=== PATIENT | female | born 1970 | race Caucasian/White ===

== ENCOUNTER 2018-07-02 06:52 | Day surgery (SDC) | payer OTHER ==
[~2018-07-02] VITALS: Ht 175.3 cm; Wt 170.1 kg
[~2018-07-02 06:52] MED LIST: ALDACTONE25 MG PO; AMLODIPINE BES2.5 MG PO; B COMPLEX1 EACH PO; GABAPENTIN600 MG PO; HYDROCHLOROTH12.5 MG PO; POTASSIUM99 M1 PO; TRAZODONE HCL150 MG PO
[2018-07-02] MEDS ORDERED: BIOTIN5000 MCG PO (07:12)
[2018-07-02] MEDS ORDERED: ALLERGY10 M1 PO (07:12)
[2018-07-02] MEDS ORDERED: MELATONIN5 M2 PO (07:13)
--- NOTE | 2018-07-02 09:05 | NUR ---
07/02/18 0905 Chrissy Elliott 0901-PATIENT ARRIVED TO PACU ON 6L MASK O2 SAT 99% PATIENT REACTIVE TO VOICE AROUSES TO VERBAL STIMULI DROWSY. DENIES PAIN OR NAUSEA. ABDOMEN ROUND AND SOFT. RR EVEN
--- NOTE | 2018-07-02 11:20 | NUR ---
returned to rm 6 r t placing on c pap machine. c/o pain abd allover. iv patent.
--- NOTE | 2018-07-02 11:40 | NUR ---
fleets was given pt held x 10 min up to bsc exspelled yellow watery fluid 100mls. denies passing flatus. returned to bed moaning c/o pain all over abd.
--- NOTE | 2018-07-02 12:21 | NUR ---
DENIES PASSING FLATUS. ENC TO GET UP AND WALK.
--- NOTE | 2018-07-02 12:37 | NUR ---
1230 AMB TO DOORWAY LOUD MOANING AND CRYING TURNED AROUND AT DOOR AND RETURNED TO BED. AGAIN DENIES PASSING ANY FLATUS.
--- NOTE | 2018-07-02 13:43 | NUR ---
HAS BEEN PASSING LARGE AMT FLATUS. FEELING MUCH BETTER. WANTS TO GO HOME.
--- NOTE | 2018-07-03 11:04 | OR ---
[facility] [address] [place] [place], [place] [address] Signed DATE OF OPERATION: 07/02/2018 SURGEON: Mckenzie Jaffe MD PREOPERATIVE DIAGNOSIS: Screening. POSTOPERATIVE DIAGNOSES: 1. A 5 mm polyp at 75 cm. 2. A 12-15 mm polyp at 55 cm (tattoo). 3. 12-15 mm polyp at 25 cm (tattoo). 4. Minimal sigmoid diverticulosis. 5. Minimal internal anal skin tags. PROCEDURE: Colonoscopy with snare polypectomy, hot biopsy, and injection of tattoo. ESTIMATED BLOOD LOSS: None. INDICATIONS: Travis is a 48-year-old female who came to see us for her initial screening colonoscopy. She has no family history of colon cancer or polyps. She has no lower GI complaints. In the office, I gave her a pamphlet on colonoscopy and we looked at that together along with the risks of a colonoscopy including, but not limited to gas, bloating, crampy abdominal pain, bleeding, perforation, requiring surgery, and missed diagnosis. We also reviewed the need for IV conscious sedation. She had expressed understanding and wish to proceed. PROCEDURE NOTE: Travis was taken into our endoscopy suite and placed in the left lateral decubitus position. She was given IV sedation with divided doses of 11 mg of Versed and 200 mcg of fentanyl. A digital rectal exam was performed and this was unremarkable. The adult colonoscope was then introduced and advanced under direct visualization of camera without difficulty into the cecum itself. Her prep was good. The scope was then slowly withdrawn. She had a polyp at 75 cm, removed with a hot biopsy forceps. The polyp at 55 and 25 cm run along stalk and so we used the snare and then we cauterized the base of each one significantly with the hot biopsy forceps. A tattoo was injected at the base of both of those polyps at 55 and 25 cm. We also noticed a few diverticula in the sigmoid colon. They were minimal in size, minimal number and scattered about. Once in Electronically Signed By: MCKENZIE JAFFE MD 07/03/18 1104 PATIENT NAME: TRAVIS STEWART OPERATIVE REPORT DATE OF : 66 REPORT #: [id number] PHYSICIAN: MCKENZIE JAFFE MD PCP: KIKO LOPEZ REPORT IS CONFIDENTIAL AND NOT TO BE RELEASED WITHOUT AUTHORIZATION [facility] [address] [place], [place] [address] Signed the rectum, the scope had been retroflexed and there were just three tiny skin tags associated with the anal canal. After this, the gas was suctioned out and the colonoscope removed. Travis tolerated the procedure quite well. RECOMMENDATIONS: I will see Travis back in my office in 7 to 14 days to review her results. Mckenzie Jaffe MD ALB/ADAML /[id number] cc: CECELIA Kelly MD James D Ward, DO Copies: KIKO LOPEZ ANDREW L MD WARD, JAMES D DO ~ Electronically Signed By: MCKENZIE JAFFE MD 07/03/18 1104 PATIENT NAME: TRAVIS STEWART OPERATIVE REPORT DATE OF : 66 REPORT #: [id number] PHYSICIAN: MCKENZIE JAFFE MD PCP: KIKO LOPEZ REPORT IS CONFIDENTIAL AND NOT TO BE RELEASED WITHOUT AUTHORIZATION
== END 2018-07-02 13:50 | disposition home or self-care (01) ==
LOC: DS 06:52 → OPS 06:52 → DS 08:15 → OPS 08:15
PROVIDERS: Colon & Rectal Surgery
PROC: 0DBE8ZX Excision of Large Intestine, Via Natural or Artificial Opening Endoscopic, Diagnostic (ICD-10-PCS; 2018-07-02)
PROC: 0DBE8ZX Excision of Large Intestine, Via Natural or Artificial Opening Endoscopic, Diagnostic (ICD-10-PCS; principal; 2018-07-02 08:15)
DX: Z12.11 Encounter for screening for malignant neoplasm of colon (principal); D01.0 Carcinoma in situ of colon; D12.6 Benign neoplasm of colon, unspecified; K57.30 Diverticulosis of large intestine without perforation or abscess without bleeding; K64.8 Other hemorrhoids; G47.00 Insomnia, unspecified; I10 Essential (primary) hypertension; E66.9 Obesity, unspecified; G25.81 Restless legs syndrome; Z87.891 Personal history of nicotine dependence; Z79.899 Other long term (current) drug therapy; Z68.43 Body mass index [BMI] 50.0-59.9, adult
CPT/HCPCS: 74019; 88305; 99153; G0500; J1170; J2250; J2405; J3010; J7120

== ENCOUNTER 2020-09-29 07:45 | Day surgery (SDC) | payer OTHER ==
[~2020-09-29] VITALS: Ht 175.3 cm; Wt 164.5 kg
[~2020-09-29 07:45] MED LIST changes: +ALLERGY10 M1 PO; +AMLODIPINE BESY10 MG PO; +ASPIR-LOW81 MG PO; +BIOTIN5000 MCG PO; +CELECOXIB200 MG PO; +GLUCOSAMINE HC500 MG PO; +HYDROCODON-ACE1 EA11 PO; +LOSARTAN POTAS100 MG PO; +MAGNESIUM250 M1 PO; +MELATONIN5 M2 PO; +MOTRIN IB200 MG PO; +NORCO 5-325 TA1 EACH PO; +SENNA LAX8.6 MG PO; +VITAMIN C1000 MG PO; +ZINC50 MG PO
[2020-09-29] MEDS ORDERED: TURMERIC500 M2 PO (08:14)
--- NOTE | 2020-09-29 09:52 | NUR ---
09/29/20 0952 Mary Kay Xiao 0929 PT ARRIVED TO PACU PT DROWSY AND REACTIVE TO VERBAL STIMULI. VSS. PT DENIES PAIN AND NAUSEA. 0950 PT RESTING WITH EYES CLOSED AND O2 REMOVED. PT MOVED HERSELF UP IN BED AND HOB INCREASED.
--- NOTE | 2020-10-03 07:49 | EKG ---
[facility] [address] [facility] [place] [address] Signed Normal sinus rhythm Normal ECG When compared with ECG of 10-MAR-2019 11:30, premature supraventricular complexes are no longer present T wave amplitude has increased in Lateral leads Confirmed by GABRIELE GUTIERREZ MD ([id number]) on 09/27/2020 10:38:16 PM Electronically Signed By: GABRIELE GUTIERREZ MD 09/27/20 2238 Electronically Signed By: GABRIELE GUTIERREZ MD 10/10/20 1508 PATIENT NAME: TRAVIS STEWART Electrocardiogram DATE OF : 66 PHYSICIAN: GABRIELE GUTIERREZ MD REPORT #: [id number] REPORT IS CONFIDENTIAL AND NOT TO BE RELEASED WITHOUT AUTHORIZATION
--- NOTE | 2020-10-03 08:09 | OR ---
[facility] [address] [place], [place] [address] Signed DATE OF OPERATION: 09/29/2020 SURGEON: Mckenzie Jaffe MD PREOPERATIVE DIAGNOSIS: A 12 to 15 mm skin lesion left upper back/bra line. POSTOPERATIVE DIAGNOSIS: A 12 to 15 mm skin lesion left upper back/bra line. PROCEDURE: Excision of left upper back skin lesion (2 x 8 cm). ESTIMATED BLOOD LOSS: None. INDICATIONS: Travis is a 50-year-old obese female, asked to see me for a skin lesion on her left upper back, 12-15 mm in diameter. It has been underneath her bra line. It has been there probably a year. It continues to increase in size. It has been very painful underneath her bra line. Based on visual inspection, there was some concern it could be a basal cell carcinoma. She had been asked to have it removed by her primary care provider. In the office, I explained to Travis this was a bit much to do in the office under straight local anesthetic, and indeed that proved to be the case. We decided we would do this under monitored anesthesia care in the right lateral decubitus position with the help of local anesthetic. I explained to her the nature of the vertical incision required to move this lesion full thickness. She understands there is risk including, but not limited to bleeding, infection, scarring, change in contour of the skin as well as possible need for additional procedures based on pathology results. She had expressed understanding, wished to proceed. DESCRIPTION OF PROCEDURE: I had met with Travis in our preop area. With our nurse in the room, we marked the lesion appropriately. She has had a previous much smaller lesion moved over the left posterior shoulder. Her scar is quite wide. I suspect some of that is based on her body habitus, that the skin pulls apart as it scars down. After this, we took Travis into our operating room and placed in the right lateral decubitus position with appropriate padding and monitoring. She was placed under monitored anesthesia care by our nurse bearing machine operator. She was given preoperative antibiotics. SCDs were utilized. She was also given subcutaneous heparin. She was prepped and draped in the usual Electronically Signed By: MCKENZIE JAFFE MD 09/29/20 1440 Electronically Signed By: MCKENZIE JAFFE MD 10/03/20 0852 PATIENT NAME: TRAVIS STEWART OPERATIVE REPORT DATE OF : 66 REPORT #: [id number] PHYSICIAN: MCKENZIE JAFFE MD PCP: CAROLINE PAZ MD REPORT IS CONFIDENTIAL AND NOT TO BE RELEASED WITHOUT AUTHORIZATION [facility] [address] [place], [place] [address] Signed sterile fashion. We measured out an incision 2 cm wide x 8 cm in length. Local anesthetic was copiously injected in the skin and underneath the skin. A 15 blade knife was used to develop the elliptical incision, full thickness. We took some of the adipose tissue underneath with the help of the cautery. The lesion was then appropriately marked with suture and passed off the field. We could not bring the dermis back together with our usual 3-0 Monocryl suture. Consequently, we opted for two-0 nylon vertical mattress sutures to bring that skin back together. We then used 3-0 interrupted simple nylon sutures in between to reapproximate the skin edges. Dry gauze and tape were then applied. Travis was then rotated into the supine position and transferred over to her hospital bed and taken into recovery room in stable condition. Travis tolerated the procedure quite well. Mckenzie Jaffe MD ALB/MODL /[id number] cc: MD Mckenzie Brennan MD Copies: MCKENZIE JAFFE MD ~ Electronically Signed By: MCKENZIE JAFFE MD 09/29/20 1440 Electronically Signed By: MCKENZIE JAFFE MD 10/03/20 0852 PATIENT NAME: TRAVIS STEWART OPERATIVE REPORT DATE OF : 66 REPORT #: [id number] PHYSICIAN: MCKENZIE JAFFE MD PCP: CAROLINE PAZ MD REPORT IS CONFIDENTIAL AND NOT TO BE RELEASED WITHOUT AUTHORIZATION
--- NOTE | 2020-10-06 15:41 | PATH ---
[facility] [address] [facility] [place] [address] Signed SPECIMEN(S): A MID BACK SPECIMEN SOURCE: A. MID BACK CLINICAL HISTORY: Skin lesion of back. Check for margins. Excision, skin lesion on left back. FINAL PATHOLOGIC DIAGNOSIS: Skin, mid back, excision: - Dermatofibroma; not present at surgical margins. COMMENT: Sections of demonstrate a dermal based cellular neoplasm comprised of ovoid to spindled cells with prominent nucleoli, vesicular chromatin, and eosinophilic cytoplasm growing in whorled and vesicular architecture. Scattered lesional giant cells are present. Collagen trapping is concentrated towards the periphery of the lesion and the lesion extends into the subcutaneous fat. Cellular atypia, increased mitoses, and necrosis is not identified. The overlying epidermis is acanthotic and focal metaplastic ossification is present in the dermis adjacent to the lesion. Immunohistochemical stains (with appropriately staining controls) were performed for further characterization and the lesional cells show the following: Factor XIIIa: Positive CD34: Negative. The overall combined immunophenotypic profile is compatible with dermatofibroma. The lesion is not present at the surgical margins. As part of [facility]' Quality Improvement Program, this case was reviewed by another member of our pathology staff. NAL:cml:C NR MICROSCOPIC EXAMINATION: Histologic sections of all submitted blocks are examined by light microscopy. These findings, together with the gross examination, support the pathologic diagnosis. GROSS DESCRIPTION: The specimen, labeled "CT, A," and designated on the requisition "skin lesion mid back, skin lesion of back," is received in formalin and consists of a 8.2 x PATIENT NAME: TRAVIS STEWART PATHOLOGY DATE OF : 66 REPORT #: [id number] PHYSICIAN: LEANDRO PATHOLOGY PCP: CAROLINE PAZ MD REPORT IS CONFIDENTIAL AND NOT TO BE RELEASED WITHOUT AUTHORIZATION [facility] [address] [place] [address] Signed 2.0 cm, patrick skin ellipse that is excised to a depth of 2.2 cm. The specimen is oriented with a long suture indicating lateral, a short stitch indicating superior and a double stitch indicating inferior. The superior stitch is arbitrarily designated 12 o'clock the purpose of this dictation which designates the inferior stitch at 6 o'clock and the lateral stitch at approximately 8 to 9 o'clock. The specimen is inked as follows: 12 o'clock-3 o'clock = red; 3 o'clock-6 o'clock = orange; 6 o'clock-9 o'clock-12 o'clock = blue; deep = black. On the skin surface is an ill-defined, bumpy, firm, patrick-white, 1.6 x 1.4 x 0.2 cm lesion that is 0.4 cm from the nearest skin margin, 9 o'clock. The specimen is sectioned from 12 o'clock to 6 o'clock. The lesion grossly appears to invade into the subcutaneous tissue 1.0 cm and grossly appears to abut the peripheral orange, red, and blue resection margins. The lesion is 0.8 cm from the deep margin. The remaining subcutaneous tissue is yellow, lobulated and grossly unremarkable. An additional discrete mass/lesion is not grossly identified. The specimen is submitted entirely as follows: (A1) tips (A2-A14) remaining specimen submitted sequentially from 12 o'clock to 6 o'clock AI (under the direct supervision of a pathologist) The Gross Description was prepared using a voice recognition system. The report was reviewed for accuracy; however, sound-alike word errors, addition and/or deletions may occur. If there is any question about this report, please contact Client Services. ADDITIONAL NOTES: Immunohistochemical and/or in situ hybridization studies were performed on this case with the appropriate positive controls that react as expected. This test was developed and its performance characteristics determined by [facility]. It has not been cleared or approved by the U.S. Food and Drug Administration. The FDA has determined that such clearance or approval is not necessary. This test is used for clinical purposes. It should not be regarded as investigational or for research. [facility] is certified under the Clinical Laboratory Improvement Amendments of 1988 (CLIA) as qualified to perform high complexity clinical laboratory testing. PATIENT NAME: TRAVIS STEWART PATHOLOGY DATE OF : 66 REPORT #: [id number] PHYSICIAN: LEANDRO VILLANUEVA PCP: CAROLINE PAZ MD REPORT IS CONFIDENTIAL AND NOT TO BE RELEASED WITHOUT AUTHORIZATION [address] [address] Signed PERFORMING LABORATORY: The technical component was performed by [facility], [address] [place] [address] (Landing Worker: Pamella Mukherjee MD; CLIA# [id number]). Professional interpretation was performed by [facility], [facility], [address] [address] (IA# [id number]). Diagnostician: Hoa Wong MD Pathologist Electronically Signed 10/06/2020 Copies: ~ PATIENT NAME: TRAVIS STEWART PATHOLOGY DATE OF : 66 REPORT #: [id number] PHYSICIAN: LEANDRO PATHOLOGY PCP: CAROLINE PAZ MD REPORT IS CONFIDENTIAL AND NOT TO BE RELEASED WITHOUT AUTHORIZATION
== END 2020-09-29 10:27 | disposition home or self-care (01) ==
LOC: DS 07:45
PROVIDERS: ATTEND Colon & Rectal Surgery
PROC: 0HB6XZZ Excision of Back Skin, External Approach (ICD-10-PCS; principal; 2020-09-29 08:15)
DX: L98.8 Other specified disorders of the skin and subcutaneous tissue (principal); I10 Essential (primary) hypertension; E66.01 Morbid (severe) obesity due to excess calories; G47.30 Sleep apnea, unspecified; M19.90 Unspecified osteoarthritis, unspecified site; Z85.038 Personal history of other malignant neoplasm of large intestine; Z79.899 Other long term (current) drug therapy; Z88.8 Allergy status to other drugs, medicaments and biological substances; Z68.43 Body mass index [BMI] 50.0-59.9, adult
CPT/HCPCS: 00300; 88305; 88341; 88342; J0690; J1644; J1885; J2001; J2250; J2405; J2704; J7121

== ENCOUNTER 2020-10-31 06:32 | Day surgery (SDC) | payer OTHER ==
[~2020-10-31] VITALS: Ht 175.3 cm; Wt 165.0 kg
[~2020-10-31 06:32] MED LIST changes: +TURMERIC500 M2 PO; +VALERIAN ROOT100 MG
--- NOTE | 2020-10-31 08:14 | NUR ---
10/31/20 0814 Ninoska,Mary Kay 0807 PT WAKES EASILY AND VSS. PT ENCOURAGED TO PASS GAS AND DEEP BREATHE OFF AND ON.
--- NOTE | 2020-10-31 10:10 | OR ---
[facility] [address] [place], [place] [address] Signed DATE OF OPERATION: 10/31/2020 SURGEON: Mckenzie Jaffe MD PREOPERATIVE DIAGNOSES: 1. Personal history of colonic polyps in 2018. 2. Tattoos at 25 and 55 cm. POSTOPERATIVE DIAGNOSES: 1. A 10 mm lipoma, distal right colon. 2. An 8 mm sessile polyp, distal right colon/hepatic flexure. 3. A 5 mm polyp at 70 cm. 4. Minimal left and sigmoid colon diverticulosis. 5. Tattoos at 55 and 25 cm. 6. Several small internal anal skin tags. PROCEDURES: 1. Colonoscopy. 2. Snare polypectomy. 3. Hot biopsy. ESTIMATED BLOOD LOSS: None. INDICATIONS: Travis is a 50-year-old female, who came to us in 2018 for a colonoscopy. She had a polyp at 25 cm removed with carcinoma in situ versus dysplasia. She also had a polyp removed at 55 cm, both areas received tattoos. An additional polyp was taken out around 75 cm and was much smaller. She saw her colorectal surgeon for a second opinion and it turned out the repeat sigmoidoscopy was unremarkable. The biopsy sites were healing fine. Review of the pathologic slides did not reveal any invasive cancer. She was asked to follow up then in a year for colonoscopy. She has no lower GI complaints. She gives no family history of colon cancer or polyps. In the office, I gave Travis a pamphlet on colonoscopy. We looked at that together along with the risks including, but not limited to gas bloating, crampy abdominal pain, bleeding, perforation requiring surgery, and missed diagnosis. She also understands the need for IV conscious sedation. She did well with Versed and fentanyl previously. She had expressed understanding and wished to proceed. PROCEDURE NOTE: Electronically Signed By: MCKENZIE JAFFE MD 10/31/20 1010 PATIENT NAME: TRAVIS STEWART OPERATIVE REPORT DATE OF : 66 REPORT #: [id number] PHYSICIAN: MCKENZIE JAFFE MD PCP: CAROLINE PAZ MD REPORT IS CONFIDENTIAL AND NOT TO BE RELEASED WITHOUT AUTHORIZATION [facility] [address] [place], [place] [address] Signed Travis was taken into our endoscopy suite and placed in the left lateral decubitus position. She was given a total of 9 mg of Versed and 125 mcg of fentanyl to cover the case. A digital rectal exam was performed and this was unremarkable. The adult colonoscope was inserted and advanced under direct visualization of camera without difficulty. We took a little bit of pressure in the right lower quadrant in order to get into the cecum itself. Her prep was slightly below average. We were able to irrigate and suction out most of those areas. We could easily see her ileocecal valve. We had taken pictures throughout for photodocumentation. Upon withdrawal of the scope, we saw the small lipoma in the distal right colon, and then just beyond that as we headed into the hepatic flexure was an 8 mm sessile polyp removed with help of the snare and the hot biopsy forceps. In addition, polyp was taken out at 70 cm with hot biopsy forceps. Again, she has minimal left and sigmoid colon diverticulosis. They were [id number] in size, few in number, and scattered about. We saw her tattoos back at 55 and 25 cm. We had examined those areas very carefully. No evidence of any recurrent growth or polyps. The rectum itself was unremarkable. Upon retroflexion of scope, she has several small internal anal skin tags. After this, the gas was suctioned out. The colonoscope removed. Travis tolerated the procedure quite well. RECOMMENDATIONS: I will see Travis back in my office in 7 to 14 days to review her results. She might consider additional bowel prep in the future. She could consider repeat colonoscopy in earliest three years, but no later than five. Mckenzie Jaffe MD ALB/MODL /[id number] cc: MD Mckenzie Brennan MD Copies: MCKENZIE JAFFE MD Electronically Signed By: MCKENZIE JAFFE MD 10/31/20 1010 PATIENT NAME: TRAVIS STEWART OPERATIVE REPORT DATE OF : 66 REPORT #: [id number] PHYSICIAN: MCKENZIE JAFFE MD PCP: CAROLINE PAZ MD REPORT IS CONFIDENTIAL AND NOT TO BE RELEASED WITHOUT AUTHORIZATION [facility] [address] [facility] [place], [place] [address] Signed ~ Electronically Signed By: MCKENZIE JAFFE MD 10/31/20 1010 PATIENT NAME: TRAVIS STEWART OPERATIVE REPORT DATE OF : 66 REPORT #: [id number] PHYSICIAN: MCKENZIE JAFFE MD PCP: CAROLINE PAZ MD REPORT IS CONFIDENTIAL AND NOT TO BE RELEASED WITHOUT AUTHORIZATION
--- NOTE | 2020-10-31 12:56 | NUR ---
PT ALERT, ORIENTED AND MENTIONED THAT IT IS IMPORTANT FOR HER TO STAY CURRENT WITH SCOPES BECAUSE OF FAMILY AND PERSONAL MED HISTORY. PT SEEMS TO DEAL WITH PREP APPROPRIATELY, REQUESTED PRAYER, MED. TRANS. WILL PICKUP PT FOLLOWING DC PT REQUESTED PRAYER, WILL FOLLOW
--- NOTE | 2020-11-02 11:18 | PATH ---
[facility] [address] [place], [place] [address] Signed SPECIMEN(S): C COLON POLYP AT 70 CM SPECIMEN(S): A DISTAL ASCENDING POLYP SPECIMEN(S): B DISTAL ASCENDING POLYP, BASE SPECIMEN SOURCE: A. DISTAL ASCENDING POLYP B. DISTAL ASCENDING POLYP, BASE C. COLON POLYP AT 70 CM CLINICAL HISTORY: Hx: Colon polyps. Post: Diverticulosis. MICROSCOPIC DESCRIPTION: Histologic sections of all submitted blocks are examined by light microscopy. These findings, together with the gross examination, support the pathologic diagnosis. FINAL PATHOLOGIC DIAGNOSIS: A. Colon, distal ascending, polyp, polypectomy: - Tubular adenoma; negative for high-grade dysplasia. - Lobulated submucosal fibroadipose tissue, compatible with submucosal lipoma. - Negative for malignancy. B. Colon, distal ascending, base of polyp, polypectomy: - Colonic mucosa with no histopathologic abnormality. - Negative for dysplasia or malignancy. C. Colon, polyp at 70 cm, polypectomy: - Tubular adenoma. - Negative for high-grade dysplasia or malignancy. NAL:cml:C2NR GROSS DESCRIPTION: Three specimens are received in three containers, labeled "CT." A. The specimen, labeled "CT," and designated on the requisition "distal ascending/right polypectomy," is received in formalin and consists of one pink-patrick polyp (1.1 x 0.7 x 0.7 cm) and scanty fragments of fecal debris. The resection margin of the polyp is inked blue. The polyp is trisected to reveal a yellow-patrick fatty cut surface. The specimen is submitted entirely in cassette (A1). B. The specimen, labeled "CT," and designated on the requisition "distal ascending polypectomy, base of polyp," is received in formalin and consists of one fragment of pink-patrick tissue (0.4 x 0.2 x 0.1 cm). The specimen is submitted entirely in cassette (B1). PATIENT NAME: TRAVIS STEWART PATHOLOGY DATE OF : 66 REPORT #: [id number] PHYSICIAN: LEANDRO PATHOLOGY PCP: CAROLINE PAZ MD REPORT IS CONFIDENTIAL AND NOT TO BE RELEASED WITHOUT AUTHORIZATION [facility] [address] [place], [place] [address] Signed C. The specimen, labeled "CT," and designated on the requisition "colon polypectomy at 70 cm," is received in formalin and consists of one fragment of pink-patrick tissue (0.4 x 0.2 x 0.1 cm). The specimen is submitted entirely in cassette (C1). AC (under the direct supervision of a pathologist) The Gross Description was prepared using a voice recognition system. The report was reviewed for accuracy; however, sound-alike word errors, addition and/or deletions may occur. If there is any question about this report, please contact Client Services. PERFORMING LABORATORY: The technical component was performed by [facility], [address] [place] [address] ([employer]: Pamella Mukherjee MD; CLIA# [id number]). Professional interpretation was performed by [facility], [address] [address] (CLIA# [id number]). Diagnostician: Hoa Wong MD Pathologist Electronically Signed 11/02/2020 Copies: ~ PATIENT NAME: JOBMABELTRAVIS SHITAL PATHOLOGY DATE OF : 66 REPORT #: [id number] PHYSICIAN: LEANDRO PATHOLOGY PCP: CAROLINE PAZ MD REPORT IS CONFIDENTIAL AND NOT TO BE RELEASED WITHOUT AUTHORIZATION
== END 2020-10-31 08:45 | disposition home or self-care (01) ==
LOC: OPS 06:32 → DS 06:40 → OPS 06:45 → DS 07:30 → OPS 08:45
PROVIDERS: ATTEND Colon & Rectal Surgery
PROC: 0DBE8ZX Excision of Large Intestine, Via Natural or Artificial Opening Endoscopic, Diagnostic (ICD-10-PCS; 2020-10-31)
PROC: 0DBK8ZX Excision of Ascending Colon, Via Natural or Artificial Opening Endoscopic, Diagnostic (ICD-10-PCS; principal; 2020-10-31 06:45)
DX: Z12.11 Encounter for screening for malignant neoplasm of colon (principal); D17.5 Benign lipomatous neoplasm of intra-abdominal organs; D12.2 Benign neoplasm of ascending colon; K57.30 Diverticulosis of large intestine without perforation or abscess without bleeding; K64.8 Other hemorrhoids; K64.4 Residual hemorrhoidal skin tags; I10 Essential (primary) hypertension; G47.30 Sleep apnea, unspecified; M19.90 Unspecified osteoarthritis, unspecified site; G25.81 Restless legs syndrome; E66.01 Morbid (severe) obesity due to excess calories; Z85.038 Personal history of other malignant neoplasm of large intestine; Z79.899 Other long term (current) drug therapy; Z86.010 Personal history of colon polyps; Z68.43 Body mass index [BMI] 50.0-59.9, adult; Z88.8 Allergy status to other drugs, medicaments and biological substances
CPT/HCPCS: 99153; G0500; J2250; J3010; J7121

== ENCOUNTER 2022-04-07 16:48 | Emergency (ER) | payer OTHER ==
[~2022-04-07] VITALS: Ht 175.3 cm; Wt 176.9 kg
[2022-04-07] MEDS ORDERED: HYDROXYZINE HCL25 MG PO (19:34)
[2022-04-07] MEDS ORDERED: ONDANSETRON ODT8 MG PO (19:34)
== END 2022-04-07 20:06 | disposition home or self-care (01) ==
LOC: ED 16:48
DX: R06.4 Hyperventilation (principal); R20.2 Paresthesia of skin; E66.9 Obesity, unspecified; I10 Essential (primary) hypertension; Z87.891 Personal history of nicotine dependence; Z88.8 Allergy status to other drugs, medicaments and biological substances; Z79.899 Other long term (current) drug therapy
CPT/HCPCS: 99283; A9270; A9270-GY

== ENCOUNTER → 2022-10-04 | Emergency (ER) | payer OTHER ==
[~2022-10-04] VITALS: Ht 175.3 cm; Wt 176.1 kg
[~2022-10-04] MED LIST changes: +HYDROXYZINE HCL25 MG PO; +ONDANSETRON ODT8 MG PO
--- NOTE | 2022-10-04 21:52 | EKG ---
[facility] [address] [facility] [place], [place] [address] Signed Sinus rhythm with occasional premature ventricular complexes Otherwise normal ECG When compared with ECG of 27-SEP-2020 09:49, premature ventricular complexes are now present Confirmed by GABRIELE GUTIERREZ MD ([id number]) on 10/04/2022 9:52:39 PM Electronically Signed By: GABRIELE GUTIERREZ MD 10/04/222151 PATIENT NAME: TERRYTRAVIS SHITAL Electrocardiogram DATE OF : 66 PHYSICIAN: GABRIELE GUTIERREZ MD REPORT #: [id number] REPORT IS CONFIDENTIAL AND NOT TO BE RELEASED WITHOUT AUTHORIZATION
== END | disposition short-term general hospital (02) ==
LOC: ED 10:39
DX: I62.9 Nontraumatic intracranial hemorrhage, unspecified (principal); R47.81 Slurred speech; G81.94 Hemiplegia, unspecified affecting left nondominant side; I10 Essential (primary) hypertension; E66.9 Obesity, unspecified; Z20.822 Contact with and (suspected) exposure to COVID-19; J90 Pleural effusion, not elsewhere classified; D49.6 Neoplasm of unspecified behavior of brain; R29.720 NIHSS score 20; Z87.891 Personal history of nicotine dependence; Z88.8 Allergy status to other drugs, medicaments and biological substances; Z79.899 Other long term (current) drug therapy
CPT/HCPCS: 36415; 51702; 70450; 70496; 70498; 71045; 80053; 85025; 85610; 85730; 87502; 93005; 93010; 99285-25; C9803; J1100; J1170; J1953; J2405; J7060; Q9967; U0003